=== PATIENT | female | born 1995 | race Caucasian/White ===

== ENCOUNTER 2021-09-20 19:58 | Emergency (ER) | payer OTHER ==
[~2021-09-20] VITALS: Ht 167.6 cm; Wt 70.3 kg
[2021-09-20 20:36] VITALS: BP 120/84
--- NOTE | 2021-09-20 20:38 | ER.PDOC ---
General Chief Complaint: Requesting Medical Care Stated Complaint: GENERAL COMPLAINT TRAVEL OUT OF US: No Time seen by MD: 20:38 Source: patient Exam Limitations: no limitations History of Present Illness Initial Comments Pt presents c/o vaginal spotting today, abdominal pain and thinks she might be . LMP - 08/22/2021. Severity: mild Modifying Factors: improves with other (none reported) Associated Symptoms: other (abdominal pain) Review of Systems Constitutional: denies chills, denies diaphoresis, denies fever, denies malaise, denies weakness EENTM: denies eye pain Respiratory: denies cough, denies shortness of breath Cardiovascular: denies chest pain, denies palpitations Gastrointestinal: abdominal pain; denies nausea, denies vomiting Genitourinary: denies dysuria; hematuria, other (vaginal spotting. ) Musculoskeletal: denies back pain Skin: denies change in color Psychiatric/Neurological: denies anxiety All Other Systems: Reviewed and Negative Physical Exam General Appearance: No Apparent Distress, WD/WN EENT: eyes nml inspection Neck: Non-Tender, Full Range of Motion Respiratory: chest non-tender, lungs clear, normal breath sounds, no respiratory distress, no accessory muscle use CVS: reg rate & rhythm, no murmur, no gallop, pulses nml Gastrointestinal: Normal Bowel Sounds, No Organomegaly, No Pulsatile Mass, Soft, Guarding (LUQ), Tenderness (LLQ and LUQ) Back: Normal Inspection, No CVA Tenderness Extremities: Normal Range of Motion, Non-Tender, Normal Inspection, No Pedal Edema, No Calf Tenderness Neurologic/Psychiatric: No Motor/Sensory Deficits, Alert, Normal Mood/Affect, Oriented x 3 Skin: Normal Color, Warm/Dry Results/Orders Results/Orders Orders - ODALIS CLEARY MD Urinalysis (09/20/21 20:33) Hcg Urine (09/20/21 20:33) Urine Culture (09/20/21 20:25) Vital Signs Date Time Temp Pulse Resp B/P (MAP) Pulse Ox O2 Delivery O2 Flow Rate FiO2 09/20/21 20:36 97.3 87 16 98 09/20/21 20:36 97.3 87 16 120/84 (96) 98 Room Air* 0 21 09/20/21 20:36 97.3 87 16 Laboratory Tests Test 09/20/21 20:25 Urine Collection Type UNKNOWN Urine Color YELLOW Urine Appearance CLOUDY Urine Bilirubin NEGATIVE (NEGATIVE) Urine Ketones NEGATIVE (NEGATIVE) Urine Specific [place] 1.015 (1.005-1.030) Urine pH 7.0 (4.5-8.0) Urine Protein NEGATIVE (NEGATIVE) Urine Urobilinogen 0.2 E.U./dL (0.2) Urine Nitrate NEGATIVE (NEGATIVE) Urine Leukocyte Esterase NEGATIVE (NEGATIVE) Urine Glucose (Auto)(UA) NEGATIVE (NEGATIVE) Urine Blood 3+ (NEGATIVE) H Urine RBC 5-10 RBC/HPF (NONE SEEN) H Urine WBC 10-25 WBC/HPF (0-2) H Urine Squamous Epithelial Cells MODERATE (<=FEW) Urine Bacteria MODERATE (NONE SEEN) H Urine HCG, Qualitative NEGATIVE (NEGATIVE) ER DEPART Departure Time of Disposition: 21:09 Disposition: 01 HOME / SELF CARE / HOMELESS Impression: Primary Impression: Abdominal pain Additional Impression: Menstruation Condition: Stable Referrals: PCP,UNKNOWN (PCP) PRIMARY CARE PROVIDER Duration or Time Spent with Pa: 10 mins Problem Qualifiers ODALIS CLEARY MD September 20, 2021 20:38
[2021-09-20 20:47] LABS: BILIRUBIN,URINE NEGATIVE (NEGATIVE); UROBILINOGEN,URINE 0.2 E.U./dL (0.2)
== END 2021-09-20 21:21 | disposition home or self-care (01) ==
LOC: ER 19:58
DX: R10.32 Left lower quadrant pain (principal); R10.12 Left upper quadrant pain; N94.6 Dysmenorrhea, unspecified
CPT/HCPCS: 81001; 81025; 87086; 99282; 99283